=== PATIENT | male | born 2000 | race Two or more races ===

== ENCOUNTER 2023-03-06 14:13 | Emergency (ER) | payer MEDICAID, SELFPAY ==
[2023-03-06] VITALS (8 sets, daily range): BP systolic 118–137; BP diastolic 74–97; PULSE 64–94; RESP 11–21; TEMP 36.6; O2SAT 98–100; BMI 18.3
--- NOTE | 2023-03-06 14:10 | ECG_ITS ---
APPROVED REPORT Exam: Resting ECG HR:65 bpm ECG Measurements Heart Rate 65 AXES VA 162 P 67 QRSd 89 QRS 66 QT 384 T 34 QTc 396 Conclusion SINUS RHYTHM WITH OCCASIONAL VENTRICULAR PREMATURE COMPLEXES BORDERLINE ECG UNCONFIRMED REPORT Electronically signed by : Juan Schilling MD 03/06/2023 19:21:41
--- NOTE | 2023-03-06 14:15 | PC.NURSE ---
FSBS: [id number]
--- NOTE | 2023-03-06 14:51 | PC.NURSE ---
Dr. Antunez at [facility] for pt eval
[2023-03-06 14:53] LABS: Chloride 98 mmol/L (98-107)
[2023-03-06 14:54] LABS: Potassium 3.3 mmoL/L (3.5-5.1); Sodium 136 mmol/L (136-145)
--- NOTE | 2023-03-06 14:56 | XR_ITS ---
FINAL REPORT CLINICAL HISTORY: dyspnea FINDINGS: SINGLE-VIEW CHEST The heart size is normal. The mediastinum is normal. The lungs are clear. There is no pneumothorax. IMPRESSION: No acute cardiopulmonary process. Reviewed, Interpreted and Dictated by Migue Garcia III, MD Transcribed by Sue Marroquin Authenticated and [facility]
[2023-03-06 14:57] LABS: Anion Gap 21.3 mEq/L (5-15); Blood Urea Nitrogen 6 mg/dl (9-20); Calcium 8.8 mg/dl (8.4-10.2); Carbon Dioxide 20 mmol/L (22.0-30.0); Creatinine Clearance Estimated 202 mL/min (50-200); Estimated Glomerular Filt Rate 210 ml/min (>60); GFR (African American) 254 ML/MIN (>60); Glucose 304 mg/dl (74-100)
--- NOTE | 2023-03-06 14:57 | HMH.EDGENADL ---
Discharge Plan Disposition Patient Disposition: Home, Self-Care Referrals Follow up/Referrals: Provider,MD Lora [Primary Care Provider] - See instructions Clinical Impressions Clinical Impression: Racing heart beat, Weakness, Chronic gastroesophageal reflux disease, Poorly controlled diabetes mellitus, Elevated lactic acid level, Transaminitis Discharge ED Provider: Hermes Portillo General Adult HPI <Juan Antunez MD - Last Filed: 03/06/23 15:01> General Chief complaint: Chest Pain Stated complaint: Chest Pain Time Seen by Provider: 03/06/23 14:30 Mode of Arrival: Wheelchair Source of Information: Patient Limitations: No Limitations Description of Symptoms (Recalled from ER Triage Doc. by RN): Patient states his heart has been racing off and on with chest pain since he was discharged from on Sunday. History of Present Illness HPI narrative: Patient is a 22-year-old male presenting with chest discomfort which she describes as chronic reflux as well as heart racing after recent diagnosis and discharged for DKA. He is accompanied by his mother she states they discharged him very quickly after his gap closed and he has been poorly controlled at home. 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 She states that he did not feel well he was weak was having some chest discomfort which is chronic and his heart was racing his heart rate was 125 at home. She was concerned he may be going back into DKA. Patient denies any significant abdominal pain fevers chills or any other symptoms. Related Data Allergies Allergy/AdvReac Type Severity Reaction Status Date / Time No Known Allergies Allergy Verified 03/06/23 14:22 PFS <Juan Antunez MD - Last Filed: 03/06/23 15:01> [facility] Disclaimer: The information contained in this section may have been updated after the patient was seen, as this information can be updated by other users. Social History (Updated 03/06/23 @ 15:01 by Juan Antunez MD) Smoking Status: Current every day smoker alcohol intake: never current occupational status: other Travel in the last 8 weeks: None <Juan Antunez MD - Last Filed: 03/06/23 15:01> ROS Obtained: Yes All systems reviewed & no additional complaints except as documented Physical Exam <Juan Antunez MD - Last Filed: 03/06/23 15:01> General General appearance: alert Respiratory Respiratory exam: Present normal lung sounds bilaterally Cardiovascular Cardiovascular exam: Present regular rate Abdominal Exam Abdominal exam: Present soft; Absent distention or tenderness Neurological Exam Neurological exam: Present alert Medical Decision Making <Juan Antunez MD - Last Filed: 03/06/23 15:01> [facility] Inquiry Pt receiving controlled substance: No Vital Signs: 03/06/23 14:14 03/06/23 14:30 03/06/23 15:00 Temperature 97.9 F Temperature Source Oral Pulse Rate 64 94 H Pulse Rate [Radial] 67 Respiratory Rate 17 17 21 Blood Pressure 137/97 H 132/96 H Blood Pressure [Right Arm] 131/81 Blood Pressure Mean 111 Blood Pressure Mean [Right Arm] 97 Blood Pressure Source [Right Arm] Automatic Cuff Blood Pressure Position [Right Arm] Sitting 02 Sat by Pulse Oximetry 100 100 99 Oxygen Delivery Method Room Air 03/06/23 15:30 03/06/23 16:00 03/06/23 16:30 Temperature Temperature Source Pulse Rate 90 76 81 Pulse Rate [Radial] Respiratory Rate 11 L 16 21 Blood Pressure 129/87 118/83 127/74 Blood Pressure [Right Arm] Blood Pressure Mean Blood Pressure Mean [Right Arm] Blood Pressure Source [Right Arm] Blood Pressure Position [Right Arm] 02 Sat by Pulse Oximetry 98 100 100 Oxygen Delivery Method Room Air 03/06/23 17:00 Temperature Temperature Source Pulse Rate 74 Pulse Rate [Radial] Respiratory Rate 18 Blood Pressure 132/79 Blood Pressure [Right Arm] Blood Pressure Mean Blood Pressure Mean [Ri
[2023-03-06 14:58] LABS: Basophils % 0.2 % (0.1-2.0); Eosinophils # 0.1 K/mm3 (0.0-0.4); Eosinophils % 0.7 % (0.1-12.0); Hematocrit 41.5 % (42.0-52.0); Hemoglobin 13.9 g/dL (14.1-18.0); Lymphocytes # 1.9 K/mm3 (0.7-4.5); Lymphocytes % 24.7 % (10-50); Mean Corpuscular HGB Conc 33.6 g/dL (31.8-35.4); Mean Corpuscular Hemoglobin 30.2 pg (27.0-31.2); Mean Corpuscular Volume 89.9 fl (80-94); Mean Platelet Volume 7.4 fl (7.4-10.4); Monocytes # 0.5 K/mm3 (0.1-1.0); Monocytes % 5.8 % (1.7-9.3); Neutrophils # 5.3 K/mm3 (1.8-7.8); Neutrophils % 68.6 % (37.0-80.0); Platelet Count 351 K/mm3 (142-424); Red Blood Count 4.61 M/mm3 (4.60-6.20); Red Cell Distribution Width 13.6 % (11.5-17.5); White Blood Count 7.8 K/mm3 (4.8-10.8)
--- NOTE | 2023-03-06 15:00 | PC.NURSE ---
RAD at for cxr
[2023-03-06 15:06] LABS: VBG Base Excess -5.8 mmol/L (-2.4-2.3); VBG HCO3 20.1 mmol/L (23-30); VBG Oxygen Saturation 86.3 % (50-70); VBG PCO2 38.8 mmol/L (35-51); VBG PH 7.33 mmol/L (7.31-7.41); VBG PO2 53.4 mmol/L (28-40); VBG Total CO2 21.3 mmol/L (23-27)
[2023-03-06 15:10] LABS: Troponin I < 0.01 ng/ml (0.00-0.034)
[2023-03-06 15:18] LABS: Bilirubin,Unconjugated 0.2 mg/dL (0.0-1.1)
[2023-03-06 15:19] LABS: Alanine Aminotransferase 171 U/L (12-78); Albumin Level 4.2 g/dl (3.5-5.0); Alkaline Phosphatase 95 U/L (38-126); Aspartate Amino Transferase 191 U/L (17-59); Bilirubin,Direct 0.4 mg/dl (0.0-0.4); Bilirubin,Indirect 0.2 mg/dL (0.0-0.9); Bilirubin,Total 0.6 mg/dl (0.2-1.3); Magnesium 1.5 mg/dl (1.6-2.3); Total Protein,Serum 6.6 g/dl (6.3-8.2)
[2023-03-06 16:13] LABS: Procalcitonin 0.088 ng/mL (0.0-2.0)
[2023-03-06 16:46] LABS: Lactic Acid 5.5 mmol/L (0.7-2.1)
--- NOTE | 2023-03-06 16:46 | PC.NURSE ---
Lab called with critical lab value, lactic acid 5.5, reported to BRIAN Portillo
--- NOTE | 2023-03-06 17:17 | PC.NURSE ---
Dr. Portillo speaking with Dr. Ross about a follow-up appt. with the high risk discharge clinic
--- NOTE | 2023-03-06 17:26 | PC.NURSE ---
Dr. Portillo at [facility] to update pt/mother on POC
[2023-03-06 17:43] LABS: POC Glucose,Bedside 139 (70-110)
--- NOTE | 2023-03-06 17:51 | PC.NURSE ---
Dr. Portillo speaking with transfer nurse pracKaylie, about possible transfer
[2023-03-06 18:02] LABS: Acetone, Serum (Rapid) None Detected (None Detect)
--- NOTE | 2023-03-06 18:02 | PC.NURSE ---
Report given to Jesika [facility] BRIAN.
[2023-03-06 18:05] LABS: Lipase 74 U/L (23-300)
[2023-03-06 20:33] LABS: Reflex Lactic Add Lactic Reflex
[2023-03-08 11:14] LABS: HBsAg Screen Negative (Negative); HCV Ab Non Reactive (Non Reactive); Hep A Ab, IGM Negative (Negative); Hep B Core Ab, IgM Negative (Negative)
== END 2023-03-06 18:31 | disposition other institution (70) ==
PROVIDERS: Student in an Organized Health Care Education/Training Program; Emergency Provider Emergency Medicine
DX: R07.89 Other chest pain (principal); E11.65 Type 2 diabetes mellitus with hyperglycemia; R74.02 Elevation of levels of lactic acid dehydrogenase [LDH]; R74.01 Elevation of levels of liver transaminase levels; R00.2 Palpitations; K21.9 Gastro-esophageal reflux disease without esophagitis; F17.210 Nicotine dependence, cigarettes, uncomplicated; Z79.4 Long term (current) use of insulin
CPT/HCPCS: 71045; 80048; 80074; 80076; 82009; 82803; 82962; 83605; 83690; 83735; 84145; 84484; 85025; 87040; 93005; 96361; 96374; 99285